=== PATIENT | male | born 1995 | race African-American/Black ===

== ENCOUNTER 2024-03-18 12:36 | Emergency (ER) | payer BC ==
[~2024-03-18] VITALS: Ht 175.3 cm; Wt 81.8 kg
[2024-03-18 13:52] VITALS: BP 136/88; PULSE 67; RESP 18; TEMP 98; O2SAT 99
[2024-03-18] MEDS: KETOROLAC TROMETH 60MG/2ML VIAL IM ONE (14:23)
[2024-03-18] MEDS: HYDROcodone-ACET 5/325MG TAB PO ONE (14:23)
[2024-03-18] MEDS ORDERED: IBUP-1456 PO (14:36)
[2024-03-18] MEDS ORDERED: BACL10TA PO (14:36)
== END 2024-03-18 14:47 | disposition home or self-care (01) ==
LOC: ER 12:45
DX: S29.012A Strain of muscle and tendon of back wall of thorax, initial encounter (principal); S39.012A Strain of muscle, fascia and tendon of lower back, initial encounter; F17.210 Nicotine dependence, cigarettes, uncomplicated; Z79.899 Other long term (current) drug therapy; X50.1XXA Overexertion from prolonged static or awkward postures, initial encounter; Y93.89 Activity, other specified; Y92.89 Other specified places as the place of occurrence of the external cause; Y99.8 Other external cause status
CPT/HCPCS: 96372; 99283; J1885